=== PATIENT | male | born 1965 | race Two or more races ===

== ENCOUNTER 2025-06-02 20:15 | Emergency (ER) | payer BC, SELFPAY ==
--- OUTSIDE RECORDS SUMMARY | 2025-05-29 23:59 | XMS_ITS | Continuity of Care Document ---
Author Organization [facility] Address [address] [address]- Care Team Providers Care Rate Supervisor Name Role Phone Rocio RAZA, [facility] Primary Care Physician Encounter [facility] Date(s): 04/29/25 - 05/29/[address] [address]- Attending Physician: Juvencio Baxter Admitting Physician: Juvencio Baxter Referring Physician: AdmtrJuvencio Encounter Type: Triage Allergies, Adverse Reactions, Alerts No Known Allergies Immunizations Given and Recorded Vaccine Date Status Refusal Reason SARS-CoV-2 (COVID-19) mRNA BNT-162b2 vac 06/17/21 Recorded SARS-CoV-2 (COVID-19) mRNA BNT-162b2 vac 11/26/20 Recorded SARS-CoV-2 (COVID-19) mRNA BNT-162b2 vac 11/05/20 Recorded influenza virus vaccine, inactivated 1 06/23/19 Gi chreri influenza virus vaccine, inactivated 03/23/18 Give n influenza virus vaccine, inactivated 07/05/16 Give n tetanus/diphtheria/pertussis, acel(Tdap) 02/14/17 Given 1Result Comment: [facility]: [id number] Medications Aspirin Low Dose 81 mg oral delayed release tablet 1 tablet, By Mouth, Daily, # 90 tablet, 1 Refills, Maintenance, 05/14/25 8:25:00 PM EST, [id number], 167.6, cm, 04/26/25 13:08:00 EST, Height, 87, kg, 12/22/24 13:27:00 EDT, Dry Weight Start Date: 05/14/25 Status: Ordered Medication Dispense Status: Completed Quantity: 90.0 Unit: tablet Total Allowed Fills: 1 Fills Dispensed: 0 atorvastatin 80 mg oral tablet 1 tablet, By Mouth, Daily, # 90 tablet, 1 Refills, Maintenance, 05/14/25 8:25:00 PM EST, [id number], 167.6, cm, 04/26/25 13:08:00 EST, Height, 87, kg, 12/22/24 13:27:00 EDT, Dry Weight Start Date: 05/14/25 Status: Ordered Medication Dispense Status: Completed Quantity: 90.0 Unit: tablet Total Allowed Fills: 1 Fills Dispensed: 0 carvedilol 25 mg oral tablet See Instructions, 1 tabs (50mg) By Mouth 2 times a day, # 120 tablet, Refills 5, Tot. Refills 5, Maintenance, 01/18/25 1:58:00 PM EDT, Instructions Replace Required Details, Do Not Route, [facility] please note dose increase. Start Date: 01/18/25 Status: Ordered Medication Dispense Status: Completed Quantity: 120.0 Unit: tablet Total Allowed Fills: 6 Fills Dispensed: 0 Entresto 97 mg-103 mg oral tablet See Instructions, 1 tablet By Mouth 2 times a day brand name , # 60 tablet, 5 Refills, Maintenance, 07/22/24 8:57:00 AM EST, Tablet, [id number], Partial fill upon patient request if the prescription is for a schedule II opioid drug., 1 tablet By Mouth 2 times a day brand name , 167.6, cm, 07/08/24 13:57:00 EST, Height, 92, kg, 08/19/23 13:33:00 EDT, Dry Weight Start Date: 07/22/24 Status: Ordered Medication Dispense Status: Completed Quantity: 60.0 Unit: tablet Total Allowed Fills: 6 Fills Dispensed: 0 Jardiance 10 mg oral tablet 1 tablet = 10 mg, By Mouth, Daily in AM, # 90 tablet, 3 Refills, Maintenance, 04/26/25 1:20:00 PM EST, Tablet, [id number], Partial fill upon patient request if the prescription is for a schedule II opioid drug., 167.6, cm, 04/26/25 13:08:00 EST, Height, 87, kg, 12/22/24 13:27:00 EDT, Dry Weight Start Date: 04/26/25 Stop Date: 04/21/26 Status: Ordered Medication Dispense Status: Completed Quantity: 90.0 Unit: tablet Total Allowed Fills: 4 Fills Dispensed: 0 mexiletine 200 mg oral capsule 1 capsule, By Mouth, Every 12 hours, # 180 capsule, 1 Refills, Maintenance, 02/17/25 9:37:00 AM EDT,[id number], 167.6, cm, 01/18/25 14:10:00 EDT, Height, 87, kg, 12/22/24 13:27:00 EDT, Dry Weight Start Date: 02/17/25 Status: Ordered Medication Dispense Status: Completed Quantity: 180.0 Unit: capsule Total Allowed Fills: 1 Fills Dispensed: 0 omeprazole 40 mg oral enteric coated capsule 1 capsule, By Mouth, Daily, # 90 capsule, 1 Refills, Maintenance, 01/07/25 6:58:00 AM EDT, [id number], 167.6, cm, 09/01/24 14:47:00 EDT, Height, 87, kg, 12/22/24 13:27:00 EDT, Dry Weight Start Date: 01/07/25 Status: Ordered Medication Dispense Status: Completed Quantity: 90.0 Unit: capsule Total Allowed Fills: 1 Fills Dispensed: 0 spironolactone 25 mg oral tablet See Instructions, 1 tablet By Mouth Daily, # 90 tablet, Refills 0, Tot. Refills 0, Maintenance, 04/04/25 9:41:00 AM EDT, Instructions Replace Required Details, Route to Pharmacy Electronically, [facility]/pharm[facility] #[id number], Partial fill upon patient request if the prescription is for a schedule II opioid drug., 167.6, cm, 01/18/25 14:10:00 EDT, Height, 87, kg, 12/22/24 13:27:00 EDT, Dry Weight Start Date: 04/04/25 Status: Ordered Medication Dispense Status: Completed Quantity: 90.0 Unit: tablet Total Allowed Fills: 1 Fills Dispensed: 0 Vitamin D3 50,000 intl units oral capsule 1 capsule = 1,250 mcg, By Mouth, Every week, # 12 capsule, 0 Refills, Maintenance, 04/26/25 1:19:00PM EST, Capsule, [id number], Partial fill upon patient request if the prescription is for aschedule II opioid drug., 167.6, cm, 04/26/25 13:08:00 EST, Height, 87, kg, 12/22/24 13:27:00 EDT, Dry Weight Start Date: 04/26/25 Status: Ordered Medication Dispense Status: Completed Quantity: 12.0 Unit: capsule Total Allowed Fills: 1 Fills Dispensed: 0 Problem List Condition Confirmation Course Effective Dates Status H ealth Status Informant STEMI (ST elevation myocardial infarction) Confirmed Active Adjustment disorder with anxiety Confirmed Active Cardiomyopathy Confirmed Active Chronic systolic congestive heart failure, NYHA class 1 Confirmed Active GERD (gastroesophageal reflux disease) Confirmed Active Ischemic cardiomyopathy with implantable cardioverter-defibril lator (ICD) Confirmed Active AICD present, double chamber Confirmed Active Hyperlipidemia Confirmed Active Hypertension Confirmed Active Prediabetes Confirmed Active Obese class I Confirmed Active Obesity Confirmed Active Apnea, sleep Confirmed Active Tobacco abuse Confirmed Active Tubular adenoma, in 2018 colonoscopy, needs rpt in 5 yrs. Confirmed Active Tubular adenoma of colon 1 Confirmed 08/12/17 Active Vitamin D deficiency Confirmed Active 1repeat screening colonoscopy in 5 years Social History Social History Type Response Sexual Sexually involved in last 6 months: No. Smoking Status 10 or more cigarette s (1/2 pack or more)/day in last 30 days; Tobacco user in household: Yes entered on: 12/31/19 Sex Sex Representation Male (finding) Patient Care team information Care Team Personnel Name: Magaly Mcclelland RN Position: [facility] Nurse Member Role: Primary Care Nurse Name: Erlin Henry RN Position: S RN Member Role: Primary Care Nurse Name: Chelle Lee RN Position: [facility] Nurse Member Role: Primary Care Nurse Name: Milton Chan MD Position: S Physician - Primary Care Member Role: PCP Address: [address] [place] [address]- Telecom: Name: Carlos A Love RN Position: S RN Member Role: Primary Care Nurse Care Team Related Persons Name: RORY JASMINE Insurance Providers Guarantor name: ROOSEVELT WOMACK [facility] Plan Information #: 1 Payer: [employer] [facility] Payer Identifier: [facility] Member Number: [id number] Group Number: [id number] Subscriber Identifier: NA Relationship to Subscriber: self Coverage Type: NA Coverage Verification Date: NA Telecom: CHRISTY Address: NA
--- NOTE | ~2025-06-02 | XR_ITS ---
CLINICAL HISTORY: cp 2 view chest x-ray Comparison: None provided Findings: Lungs are clear without acute infiltrates. No pneumothorax. Heart size normal. No acute bony abnormalities. Left pacemaker with right heart lead. Impression: No acute processes This document has been electronically signed by: Lio Roque MD on 06/02/2025 21:16:36
[2025-06-02 20:25] VITALS: BP 153/109; PULSE 70; RESP 18; TEMP 36.6; O2SAT 98; BMI 31.2
[2025-06-02 21:21] LABS: Resp Syncy Virus RNA Qual PCR NEGATIVE (Negative); SARS COV2 PCR INHOUSE NEGATIVE (Negative)
--- NOTE | 2025-06-02 22:58 | ED_ITS ---
HPI - URI/Sore Throat General Chief Complaint: Upper Respiratory Symptoms Stated Complaint: coughing, lung pain Time Seen by Provider: 06/02/25 22:53 History of Present Illness ED Provider: LAVINIA CADE MD HPI Narrative: 60-YEAR-OLD MALE WITH HISTORY OF PACEMAKER HYPERTENSION DIABETES REPORTS COUGH FOR ABOUT 6 DAYS NOW DEVELOPED SOME DISCOMFORT WITH COUGHING IN THE LOWER COSTAL MARGIN BILATERALLY FEELS HE HAS STRAINED MUSCLE IN HIS CHEST. NO ABDOMINAL PAIN NAUSEA OR VOMITING. IS EATING AND DRINKING WELL DENIES HIM OFF HEMOPTYSIS OR PHLEGM PRODUCTION NO LEG SWELLING NO CHEST PAIN MILD LOW-GRADE SUBJECTIVE FEVER NO SORE THROAT Related Data Allergies Allergy/AdvReac Type Severity Reaction Status Date / Time No Known Allergies Allergy Verified 06/02/25 20:29 [facility] Social History Social History Advance Directives: No Advance Directives Information Provided: Yes Do you have a plan to hurt others: No Plan Physical Exam Exam: Exam: EXAM: Gen: Alert, awake, well appearing, well hydrated. Head: Atraumatic Eyes: Anicteric, Normal conjunctiva. ENT: Moist mucosa, no pallor. ? Neck: Supple. Skin: ?No observable rash or bruising on exposed or examined skin Respiratory: Breathing comfortably, No distress.Clear to auscultation bilaterally, symmetric chest expansion, No wheeze, rales, ronchi. Cardiovascular: Regular rate and rhythm. No murmurs or rub. Well perfused periphery, warm extremities. No edema. ?PALPABLE PACEMAKER LEFT UPPER CHEST Abdominal: No focal tenderness. Soft, no objective distension. No palpable masses or obvious organomegaly. ?No guarding, no rebound tenderness or other peritoneal findings. : No flank tenderness. Neuro: Alert. Gross movement of all extremities intact. ? Psych: Calm. Cooperative. MSK: No grossly visible deformity. Vital signs: See flowsheet Vital Signs: Vital Signs: Last Vital Signs Temp 98 F 06/03/25 02:35 Pulse 70 06/03/25 02:35 Resp 18 06/03/25 02:35 BP 153/109 H 06/03/25 02:35 Pulse Ox 98 06/03/25 02:35 BMI result Body Mass Index 31.2 Medical Decision Making Medical Decision Making MDM Narrative: Medical Decision Makin-YEAR-OLD MALE WITH COUGH URI SYMPTOMS NO HYPOXIA OR RESPIRATORY DISTRESS OR FOCAL LUNG FIND THE EXAM. FLU TEST POSITIVE. NO FOCAL INFILTRATE ON CHEST X-RAY Preliminary Favored Differential Diagnosis: VIRAL SYNDROME URI BRONCHITIS FLU PNEUMONIA among additional considered etiologies Testing Interpreted Independently: ?CHEST X-RAY WITHOUT FOCAL INFILTRATE OR EFFUSION Radiology or Lab testing Results Reviewed: ?See below for details Consults: ?See below for details Independent Historians/External Chart Reviews: ?See below for details Social Determinants of Health Impacting MDM/Planning: ?See below for details Lab Data Labs: Lab Results 06/02/25 Range/Units 20:39 Influenza Type A (PCR) POSITIVE A (Negative) Influenza Type B (PCR) NEGATIVE (Negative) RSV RNA Qual (PCR) NEGATIVE (Negative) SARS-CoV-2 RNA (RT-PCR) NEGATIVE (Negative) Discharge Plan Discharge Clinical Impression: Viral infection, Influenza Patient Disposition: Home, Self-Care Instructions: Influenza (ED) Interventions: ED Discharge Assessment Last Done: 06/03/25 02:35 Discharge Date/Time: 06/03/25 02:35 Print Language: Tamazight
--- OUTSIDE RECORDS SUMMARY | 2025-06-02 23:08 | XMS_ITS | Continuity of Care Document ---
Author Organization [facility], [facility] Address [address] [place] [address] Assessment No assessment recorded. Plan of Treatment Reminders Order Date Submit Date Provider Last Modified By Organization Details Last Modified Time Details Appointments None recorded. Lab hepatic function panel, serum 2024 025 [facility], [address], [place], [address], 04:01:57 Referral None recorded. Procedures None recorded. Surgeries None recorded. Imaging None recorded. Medication Orders None recorded. Patient TargetsNo targets recorded. Patient Instructions Encounter Date Encounter Id Patient Instructions Last Modified By Organization Details Last Modified Time 05/24/2025 [id number] We discussed the nature of the condition and all options for care. We discussed oral antifungal medications and the risks, benefits, and alternatives. The patient wishes to pursue an oral antifungal medication. I will obtain Liver Function studies today. If Liver function studies and within normal limits I will begin the patient on Terbinafine 250 mg daily for three month. I explained that the liver function studies will need to be repeated in 6 weeks. Not available 05/24/2025 14:38:20 Reason for Referral None Reported. Problems Name Problem SNOMED Code Status Onset Date Resolution Date Notes Provider Name and Address Organization Details Recorded Time Onychomycos is 727335092 Active 2024 Artem Becerra DPM [address] [facility], [place], [phone], [facility] 14:03:49 Pain in right foot 2128170743803 07 Active 2024 Artem Becerra DPM [address] [place], [address], [facility] 14:03:56 Pain in left foot 9640935544260 07 Active 2024 Artem Becerra DPM [address] [facility], [place], [address], [facility] 14:03:58 Problem Notes None recorded. Procedures Surgical History Date Name Laterality Status Provider Name and Address Organization Details Recorded Time bypass of carotid artery completed Sharyn Bojorquezjaime [facility] 05/24/2025 13:52:34 Imaging Results None recorded. Procedure Notes None recorded. Medical Equipment None Reported. Allergies No known drug allergies Medications Name Sig Start Date Stop Date Status Note LastModified by Organization Details LastModified Time atorvastatin 80 mg tablet TAKE 1 TABLET BY MOUTH DAILY. active Not Available Not Available No t Available carvedilol 25 mg tablet TAKE 2 TABLETS BY MOUTH TWICE A DAY active Not Available Not Available No t Available metoprolol succinate ER 50 mg tablet,extended release 24 hr TAKE 1 TABLET BY MOUTH EVERY DAY active Not Available Not Available No t Available metoprolol succinate ER 100 mg tablet,extended release 24 hr TAKE 1 TABLET BY MOUTH EVERY DAY active Not Available Not Available No t Available omeprazole 40 mg capsule,delayed release TAKE 1 CAPSULE BY MOUTH DAILY. active Not Available Not Available No t Available aspirin 81 mg tablet,delayed release TAKE 1 TABLET BY MOUTH DAILY. active Not Available Not Available No t Available acetaminophen 500 mg tablet TAKE 2 TABLETS BY MOUTH EVERY 6 HOURS FOR 7 DAYS NEEDED FOR PAIN active Not Available Not Available No t Available spironolactone 25 mg tablet TAKE 1 TABLET BY MOUTH DAILY. active Not Available Not Available No t Available mexiletine 200 mg capsule TAKE 1 CAPSULE BY MOUTH EVERY 12 HOURS active Not Available Not Available No t Available cholecalciferol (vitamin D3) 1,250 mcg (50,000 unit) capsule TAKE 1 CAPSULE BY MOUTH EVERY WEEK active Not Available Not Available No t Available Jardiance 10 mg tablet TAKE 1 TABLET BY MOUTH DAILY IN THE MORNING FOR 90 DAYS active Not Available Not Available No t Available sacubitril 97 mg-valsartan 103 mg tablet TAKE 1 TABLET BY MOUTH TWICE A DAY active Not Available Not Available No t Available Vitals Date Recorded Body height Body mass index (BMI) Body weight Provider Name and Address Organization Details Last Updated DateTime 05/24/2025 162.56 cm 33 kg/m2 69234.74 g Sharyn Cody [facility] 05/24/2025 13:51:15 Social History Question Answer Notes LastModified by Organizat ion Details LastModified Time Tobacco Smoking Status Current Every Day Smoker Sharyn Cody null, [facility] 05/24/2025 13:53:23 Was Brief Alcohol Counseling Given Today? No Information not available 05/24/2025 Have You Ever Been Counseled For Unhealthy Alcohol Use? No Information not available 05/24/2025 What Is Your Relationship Status? Information not available 05/24/2025 Has Tobacco Cessation Counseling Been Provided? No Information not available 05/24/2025 Sex: Unknown Functional Status Question Answer Note LastModified by Organizat ion Details LastModified Time Do you use any illicit or recreational drugs? No Information not available 05/24/2025 Do you or have you ever used any other forms of tobacco or nicotine? Yes Information not available 05/24/2025 What is your level of alcohol consumption? Moderate Information not available 05/24/2025 Do you or have you ever used any nicotine-free cigarettes, vape, or chewing tobacco? No Information not available 05/24/2025 Mental Status None recorded. Family History Relationship Description Onset Age of this Age Resolved Age Notes LastModified by Organization Details LastModified Time Unspecified Relation Arthritis cflebotte Not available 05/24 13:53:39 Unspecified Relation Malignant neoplastic disease cflebotte Not available 2024 13:53:58 Unspecified Relation Cataract cflebotte Not available 2024 13:54:10 Unspecified Relation Diabetes mellitus cflebotte Not available 2024 13:54:19 Unspecified Relation Hypertensive disorder cflebotte Not available 2024 13:54:27 Medical History Condition Response Heart Disease Y Dyslipidemia Y Arthritis Y Hypertension Y Past Encounters Encounter ID Performer Location Encounter Start Date Encounter Closed Date Diagnosis/Indication Diagnosis SNOMED-CT Code Diagnosis ICD10 Code Diagnosis IMO Codes Diagnosis Note [id number] [facility] [address] [facility] [address] [place] [address] 05/24/2025 13:21:47 05/24/2025 14:38:39 Corns and callus 191583000 L84 Onychomycosis 669124081 B35.1 10502 Pain in right foot 40028 35446 85126 M79.671 607346 Pain in left foot 683277 6720 44011 M79.672 [id number] Health Concerns Section Related Observation LastModified by Organization Detai ls LastModified Time None Recorded Concern Status LastModified by Organization Details LastModified Time None Recorded Payers Encounter Date Sequence Insurance Name Policy Number Policy Grant Covered Member ID Grant Member ID Guarantor Name 05/24/2025 1 [place] [id number] Roger Alonso [id number] Roger Alonso Notes Date Note Type Note Provider Name and Address Organization Details Recorded Time 05/24/2025 text/html The patient is seen today for a chief concern of painful elongated thickened toenails. The patient reports the condition has been present for years. The patient has attempted use of OTC topical antifungal medications as well as home remedies wiuithout significant benefit Artem Becerra DPM [address] [facility], [place], [address], [facility] 05/24/2025 14:38:37
--- OUTSIDE RECORDS SUMMARY | 2025-06-02 23:08 | XMS_ITS | Encounter Summary ---
Author Organization [facility] Address [address] [place] [address] Phone Care Team Providers Care Karate Black Belt Name Role Phone Unknown, Unknown Primary Care Provider Montserrat green Encounter Details Date Type Department Care Team (Latest Contact Info) Description 09/16/2019 Ancillary Orders [facility] [address] [place] [address] [place] [address] Everette Beyer MD [address] [address] Ischemic cardiomyopathy Social History Tobacco Use Types Packs/Day Years Used Date Smoking Tobacco: Never Assessed Sex and Gender Information Value Date Recorded Sex Assigned at Not on file Legal Sex Male 2:09 PM EDT Gender Identity Not on file Sexual Orientation Not on file documented as of this encounter Plan of Treatment Not on file documented as of this encounter Results * Holter Monitor 24 Hours (09/16/2019 2:24 PM EDT) Anatomical Region Laterality Modality Heart Other Narrative 09/16/2019 4:30 PM EDT 24-hour monitor: The baseline rhythm is sinus. The minimum heart rate is 59, maximum 120, average 77 bpm. There are no long pauses present. Rare PACs present. There is an increased frequency of ventricular ectopy, about 41,000 PVCs during the 24 hours. These are primarily isolated and uniform morphology PVCs with occasional couplets and couplets. There are no patient symptoms in the diary that was returned. There are 3 patient event markers. The patient event markers occurred during sinus rhythm with PVCs in a pattern of bigeminy, which is the baseline rhythm. Impression: Abnormal 24-hour monitor due to increased frequency PVCs, over 40,000 during the 24 hours, details above. Patient event markers during baseline rhythm. Procedure Note Levi Johnson MD - 09/16/2019 24-hour monitor: The baseline rhythm is sinus. The minimum heart rate is59, maximum 120, average 77 bpm. There are no long pauses present. RarePACs present. There is an increased frequency of ventricular ectopy,about 41,000 PVCs during the 24 hours. These are primarily isolated anduniform morphology PVCs with occasional couplets and couplets. There areno patient symptoms in the diary that was returned. There are 3 patientevent markers. The patient event markers occurred during sinus rhythmwith PVCs in a pattern of bigeminy, which is the baseline rhythm. Impression: Abnormal 24-hour monitor due to increased frequency PVCs, over40,000 during the 24 hours, details above. Patient event markers duringbaseline rhythm. us Everette Beyer MD [facility] Final Result documented in this encounter Visit Diagnoses Diagnosis Ischemic cardiomyopathy Other specified forms of chronic ischemic heart disease Ischemic cardiomyopathy Other specified forms of chronic ischemic heart disease documented in this encounter Care Teams Karate Black Belt Relationship Specialty Start Date End Date Unknown, Unknown, PCP - General 09/16/19 documented as of this encounter Additional Source Comments The information contained in this document represents components of the legal health record. It is not the complete legal health record.[facility]
--- OUTSIDE RECORDS SUMMARY | 2025-06-02 23:08 | XMS_ITS | Data Portability ---
Author Organization [facility], [facility] Address [address] [place] [address] Assessment No assessment recorded. Plan of Treatment Reminders Order Date Submit Date Provider Last Modified By Organization Details Last Modified Time Details Appointments None recorded. Lab hepatic function panel, serum 2024 025 [facility], [address], [place], [address], 04:01:57 Referral None recorded. Procedures None recorded. [...] need to be repeated in 6 weeks. [email or web address] Not available 05/24/2025 14:38:20 Reason for Referral None Reported. Problems Name Problem SNOMED Code Status Onset Date Resolution Date Notes Provider Name and Address Organization Details Recorded Time Onychomycos is 227245519 Active 2024 Artem Becerra DPM [address] [place], [address], [facility] 14:03:49 Pain in right foot 9403024325490 07 Active 2024 Artem Becerra DPM [address] [facility] [place], [address], [facility] 14:03:56 Pain in left foot 9232891240833 07 Active 2024 Artem Becerra DPM [address] [facility], [place], [address], [facility] 14:03:58 Problem Notes None recorded. Procedures Surgical History Date Name Laterality Status Provider Name and Address Organization Details Recorded Time bypass of carotid artery completed Sharyn Ross [facility] 05/24/2025 13:52:34 Imaging Results None [...] Updated DateTime 05/24/2025 162.56 cm 33 kg/m2 19836.74 g Sharyn Cody [facility] 05/24/2025 13:51:15 Social History Question Answer Notes LastModified by Organizat ion Details LastModified Time Tobacco Smoking Status Current Every Day Smoker Sharyn Cody null, [facility] 05/24/2025 13:53:23 Was Brief Alcohol [...] 540 [facility] [address] [facility] [address] [facility] [place] [address] 05/24/2025 13:21:47 05/24/2025 14:38:39 Corns and callus 526762213 L84 Onychomycosis 194297572 B35.1 25288 Pain in right foot 68256 06011 77497 M79.671 363963 Pain in left foot 436984 9007 62978 M79.672 [id number] Health Concerns Section Related Observation LastModified by Organization Detai ls LastModified Time None Recorded Concern Status LastModified by Organization Details LastModified Time None Recorded Advance Directives Directive None Recorded Payers Insurance Date Sequence Insurance Name Policy Number Policy Grant Covered Member ID Grant Member ID Guarantor Name 05/24/2025 1 [id number] [id number] Roger Alonso [id number] Roger Alonso Notes Date Note Type Note Provider Name and Address Organization Details Recorded Time 05/24/2025 text/html The patient is seen today for a chief concern of painful elongated thickened toenails. The patient reports the condition has been present for years. The patient has attempted use of OTC topical antifungal medications as well as home remedies wiuithout significant benefit Artem Becerra DPM [address] [place] [address], [place], [address], [facility] 05/24/2025 14:38:37
--- OUTSIDE RECORDS SUMMARY | 2025-06-02 23:08 | XMS_ITS | Clinical Summary ---
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 Active aspirin 81 MG EC tablet Take 81 mg by mouth daily. Active metoprolol succinate (TOPROL-XL) 25 MG 24 hr tablet Take 25 mg by mouth 2 (two) times a day. Active atorvastatin (LIPITOR) 80 MG tablet Take 80 mg by mouth daily. Active omeprazole (PRILOSEC) 40 MG capsule Take 40 mg by mouth daily. Active Active Problems Problem Noted Date Diagnosed Date Atherosclerosis of coronary artery of [place] heart without angina pectoris 12/24/2019 Tobacco abuse 12/24/2019 VEGA on CPAP 12/24/2019 Family History Medical History Relation Comments Heart attack Mother Relation Status Comments Mother Social History Tobacco Use Types Packs/Day Years Used Date Smoking Tobacco: Every Day Cigarettes Smokeless Tobacco: Never Alcohol Use Standard Drinks/Week Comments Not Currently 0 (1 standard drink = 0.6 oz pur e alcohol) Education Answer Date Recorded Are you interested in more education? Not on ilana e 10/04/2022 Are you concerned about learning? Not on file 10/04/2022 No 10/04/2022 No 10/04/2022 Digital Access Answer Date Recorded No 11/02/2022 No 11/02/2022 No 11/02/2022 Reliable internet access at home? Not on file 11/02/2022 Device with a working camera? Not on file Sex and Gender Information Value Date Recorded Sex Assigned at Not on file Legal Sex Male 2:09 PM EDT Gender Identity Not on file Sexual Orientation Not on file Last Filed Vital Signs Vital Sign Reading Time Taken Comments Blood Pressure 120/70 01/27/2020 4:32 PM EDT Pulse 41 01/27/2020 4:32 PM EDT Temperature - - Respiratory Rate - - Oxygen Saturation 97% 01/27/2020 4:32 PM EDT Inhaled Oxygen Concentration - - Weight 85.2 kg (187 lb 12.8 oz) 01/27/2020 4:32 PM EDT Height 167.6 cm (5' 6 ) 01/27/2020 4:32 PM EDT Body Mass Index 30.31 01/27/2020 4:32 PM EDT Plan of Treatment Health Maintenance Due Date Last Done Comments Adult Td,Tdap Booster 1965 CREATININE LEVEL 1965 POTASSIUM LEVEL 1965 DEPRESSION SCREENING 1977 SMOKING Hx and SMOKELESS TOBACCO SCREENING 1978 HEPATITIS C SCREENING 1983 HIV ONE-TIME SCREENING (18-6 5 YEARS) 1983 PNEUMOCOCCAL VACCINES (50+ years) (1 of 2 - PCV) 1984 COLOGUARD 2010 COLONOSCOPY 2010 COLORECTAL CANCER SCREENING 2010 FIT TEST 2010 FOBT 2010 SIGMOIDOSCOPY 2010 VIRTUAL COLONOSCOPY 2010 ZOSTER VACCINES (1 of 2) 2015 INFLUENZA VACCINE (#1) 2025 COVID-19 VACCINE (3 - 2024-2 6 season) 2025 11/26/2020, 11/05/2020 RSV VACCINE (1 - 1-dose 75+ series) 2040 HEPATITIS A VACCINES Aged Out No long er eligible based on patient's age to complete this topic HIB VACCINES Aged Out No longer eligi ble based on patient's age to complete this topic MENINGOCOCCAL VACCINES (ACWY) Aged Out No longer eligible based on patient's age to complete this topic MENINGOCOCCAL VACCINES (B) Aged Out N o longer eligible based on patient's age to complete this topic Medical Devices Not on file Insurance [facility] OUT OF STATE PPO BLUE [employer]OSS OUT OF STATE PPO BLUE CROSS OUT OF STATE PPO BLUE CROSS OUT OF STATE PPO BLUE [employer]OSS OUT OF STATE PPO BLUE [employer]OSS OUT OF STATE PPO BLUE [employer] OUT OF [address] [address] [place] [address] OUT OF STATE PPO [facility] OUT OF STATE PPO 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 It is not the complete legal health record.[facility]
[2025-06-03 02:35] VITALS: BP 153/109; PULSE 70; RESP 18; TEMP 36.6; O2SAT 98
== END 2025-06-03 02:35 | disposition home or self-care (01) ==
PROVIDERS: Emergency Provider Emergency Medicine; PCP Internal Medicine
DX: J10.1 Influenza due to other identified influenza virus with other respiratory manifestations (principal); B34.9 Viral infection, unspecified; R05.9 Cough, unspecified; R07.89 Other chest pain; Z03.818 Encounter for observation for suspected exposure to other biological agents ruled out
CPT/HCPCS: 71046; 87637; 99282; 99283

== ENCOUNTER → 2025-06-02 20:31 | Outpatient (BNV) | payer BC, SELFPAY | PROVIDERS: Visit Provider Radiology Diagnostic Radiology | DX: R07.9 Chest pain, unspecified (principal) | CPT/HCPCS: 71046 ==